=== PATIENT | female | born 1965 | race Caucasian/White ===

== ENCOUNTER 2020-03-13 10:40 | Outpatient (CLI) | payer OTHER ==
--- NOTE | 2020-03-13 12:05 | CT ---
CT ABDOMEN AND PELVIS WITH IV CONTRAST 03/13/2020 CLINICAL INFORMATION: Microscopic hematuria COMPARISON: None. Technique: Multiple contiguous axial CT images are obtained through the abdomen and pelvis with IV contrast. Cor onal reformatted images are provided. FINDINGS: Lower Chest: Mild atelectasis right lung base. Vessels: Abdominal aorta is normal in caliber. Abdomen: Portal vein:Patent Gallbladder: Within normal limits for CT imaging. Liver: within normal limits. Spleen: within normal limits. Pancreas: within normal limits. Adrenals: There is thickening of the left adrenal gland which is asymmetric to the right adrenal glan d. This may relate to adrenal height or aplasia. No discrete nodule is present. Kidneys: Nonobstructing 2 to 3 mm calculi are seen in the superior pole right kidney and in the infer ior pole left kidney. Subcentimeter too small to characterize hypodense lesions are seen in the right kidney. Bowel: Colonic diverticulosis. Loops of small bowel are normal in caliber. There is submucosal fat se en involving the distal ileum may related to prior inflammatory process. A small hiatal hernia is present. Appendix: Not visualized. Peritoneum: No ascites or free air; no fluid collection. Mesentery and Retroperitoneum: No enlarged mesenteric or retroperitoneal lymph nodes. Abdominal Wall: Small fat-containing umbilical hernia. Pelvis: Reproductive Organs: There is a large heterogeneous mass seen involving the body of the uterus to the left of midline which measures 7.6 cm craniocaudal x7.9 cm AP x6.5 cm transverse. This likely represents a large uterine fibroid. There is a small low-density structure seen in each ovary probabl y related to small ovarian cysts. Bladder: Incompletely decompressed and not well evaluated on this exam. There is mass effect on the u rinary bladder due to the large uterine mass presumed to represent a uterine fibroid. Bones: Remote fracture involving the posterior right 11th rib. No suspicious lytic or sclerotic osseo us lesions are identified. IMPRESSION: 1. Heterogeneous mass involving the body of the uterus with greatest dimension of 7.9 cm. This is lik heavenly related to a large uterine fibroid. Pelvic ultrasound may be helpful for confirmation. 2. Nonobstructing bilateral renal calculi. There is no hydronephrosis or hydroureter, and no ureteral calculus is appreciated. 3. Urinary bladder is nondistended limiting evaluation. 4. Small hiatal hernia. 5. Asymmetric left adrenal gland thickening which could be related to adrenal hyperplasia. 6. No acute findings in the abdomen or pelvis.
[2020-03-13 15:17] LABS: Anion Gap 14 mmol/L (10-20); BUN (Urea Nitrogen) 19 mg/dL (9.8-20.1); Calc. Creatinine Clearance 0 mL/min (70-130); Carbon Dioxide 23 mmol/L (22-29); Chloride 105 mmol/L (98-107); Estimated GFR-MDRD 66; Glucose 89 mg/dL (70-105); Potassium 3.9 mmol/L (3.5-5.1); Sodium 138 mmol/L (136-145); Uric Acid 6.7 mg/dL (2.6-6.0)
== END 2020-03-13 10:41 | disposition home or self-care (01) ==
LOC: SCSCT 10:40
PROVIDERS: ATTEND Urology
DX: R31.29 Other microscopic hematuria (principal); N20.0 Calculus of kidney; E65 Localized adiposity; N39.46 Mixed incontinence; N85.8 Other specified noninflammatory disorders of uterus; K44.9 Diaphragmatic hernia without obstruction or gangrene; E27.8 Other specified disorders of adrenal gland
CPT/HCPCS: 74177; 80048; 83970; 84550

== ENCOUNTER 2020-05-12 11:45 | Outpatient (CLI) | payer OTHER ==
[~2020-05-12 11:45] MED LIST: Iopamidol-370 76% 500 ML 1 ML ONE
--- NOTE | 2020-05-12 14:06 | CT ---
CT NECK WITH AND WITHOUT CONTRAST: (Parathyroid protocol) DATE: 05/12/2020 HISTORY: [id number] with hyperparathyroidism and hypercalcemia. TECHNIQUE: Precontrast scan, 25 seconds postcontrast scan, and 65 second postcontrast scan, from several centime ters inferior to the tam to the skull base. Coronal and sagittal reconstructions. FINDINGS: No nodule is identified that is a good candidate for parathyroid adenoma. ACDF hardware at C6-7 in the lower cervical spine. Nonspecific asymmetric effacement of left piriform sinus. No cervical lymphadenopathy. No major pathology identified involving the pharyngeal mucosal, parotid, submandibular, retropharynge al, perivertebral, carotid, comparative sociology professor, or posterior cervical, spaces. IMPRESSION: 1. No good candidate for parathyroid adenoma identified. 2. Consider nuclear medicine sestamibi parathyroid SPECT.
== END 2020-05-12 11:46 | disposition home or self-care (01) ==
LOC: BICCT 11:45
PROVIDERS: ATTEND Specialist
DX: E21.3 Hyperparathyroidism, unspecified (principal)
CPT/HCPCS: 70492

== ENCOUNTER 2020-06-09 08:12 | Outpatient (CLI) | payer OTHER ==
--- NOTE | 2020-06-09 11:58 | NM ---
RADIONUCLIDE PARATHYROID SCAN WITH PLANAR AND SPECT-CT IMAGES: HISTORY: Hyperparathyroidism, unspecified RADIOPHARMACEUTICAL:26.2mCi technetium 99m-sestamibi injected intravenously FINDINGS: There is physiologic uptake in the salivary glands and thyroid gland. No abnormal areas of tracer localization are seen in the neck or chest. IMPRESSION: No scintigraphic evidence of parathyroid adenoma
== END 2020-06-09 08:13 | disposition home or self-care (01) ==
LOC: NM 08:12
PROVIDERS: ATTEND Specialist
DX: E21.3 Hyperparathyroidism, unspecified (principal)
CPT/HCPCS: 78072; A9500

== ENCOUNTER 2020-07-01 11:26 | Outpatient (CLI) | payer OTHER ==
--- NOTE | 2020-07-01 12:02 | RAD ---
XR Lumbar Spine Bending Min 4V History: Lumbar spondylolisthesis Comparison: Abdomen pelvis CT February 2024 reference Findings: 5 nonrib-bearing lumbar type vertebrae. Grade 1 L4 over L5 anterolisthesis due to high-grad e facet arthrosis. No abnormal translation with flexion or extension. There is 2 mm L2/L3 retrolisthesis is due to posterior degenerative disc space height loss, also fixed. Mild L3/L4 and L5/S1 degenerative disc space height loss. Impression: Fixed grade 1 L2/L3 retrolisthesis and L4/L5 anterolisthesis, both degenerative due to di sc space degeneration and facet arthrosis, respectively..
== END 2020-07-01 11:27 | disposition home or self-care (01) ==
LOC: BICRAD 11:26
PROVIDERS: ATTEND Neurological Surgery
DX: M43.16 Spondylolisthesis, lumbar region (principal); M47.816 Spondylosis without myelopathy or radiculopathy, lumbar region; M51.36 Other intervertebral disc degeneration, lumbar region
CPT/HCPCS: 72120

== ENCOUNTER 2020-08-26 09:21 | Outpatient (CLI) | payer OTHER ==
[2020-08-26 10:22] LABS: Hemoglobin 13.8 g/dL (12.0-15.5); Mean Corpuscular HGB CONC 33.1 g/dL (32.0-36.0); Mean Corpuscular Hemoglobin 29.2 pg (27.0-33.0); Mean Corpuscular Volume 88.2 fl (81.6-98.3); Mean Platelet Volume 12.4 fl (7.4-10.4); Platelet Count 190 10x3/uL (150-450); RBC Distribution Width 13.7 % (11.5-14.5); Red Blood Cell (RBC) Count 4.73 10x6/uL (3.90-5.03)
[2020-08-26 10:40] LABS: INR-International Normal Ratio 0.9; PTT 22.5 sec (22.0-33.0); Prothrombin Time 9.8 sec (9.5-12.1)
[2020-08-27 02:03] LABS: SARS-CoV-2 PCR by NAA Not Detected (NotDetected)
== END 2020-08-26 09:22 | disposition home or self-care (01) ==
LOC: LABBT 09:21
PROVIDERS: ATTEND Neurological Surgery
DX: Z01.818 Encounter for other preprocedural examination (principal); M48.061 Spinal stenosis, lumbar region without neurogenic claudication; M43.16 Spondylolisthesis, lumbar region; Z20.822 Contact with and (suspected) exposure to COVID-19
CPT/HCPCS: 85027; 85610; 85730; 87635; 93005; 93010; U0003; U0005

== ENCOUNTER 2020-08-26 10:00 | Inpatient (IN) | payer OTHER ==
[2020-08-29] MEDS ORDERED: Thrombin 5000 UNITS/5 ML VIAL ONE ×2 (06:32→10:56)
[2020-08-29] MEDS ORDERED: Scopolamine 1.5 mg/72 hour Patch ONE (07:03)
[2020-08-29] MEDS ORDERED: Rocuronium Bromide 10 MG/ML (10ML VIAL) ONE (07:08)
[2020-08-29] MEDS ORDERED: ePHEDrine Sulfate 50 MG/10 ML VIAL ONE (07:08)
[2020-08-29] MEDS ORDERED: diphenhydrAMINE 50 MG/ML VIAL ONE (07:08)
[2020-08-29] MEDS ORDERED: PHENYLEPHRINE-NS 100 MCG/ML 10 ML SYRINGE ONE (07:08)
[2020-08-29] MEDS ORDERED: Ondansetron PF 4 MG/2 ML Vial ONE (07:08)
[2020-08-29] MEDS ORDERED: Lidocaine 1% PF 5 ML VIAL ONE (07:08)
[2020-08-29] MEDS ORDERED: PROPOFOL 200 MG/20 ML VIAL ONE (07:08)
[2020-08-29] MEDS ORDERED: Famotidine/PF 20 mg/2ml Vial ONE (07:11)
[2020-08-29] MEDS ORDERED: Fentanyl 100 MCG/2 ML VIAL ONE ×5 (07:11→14:58)
[2020-08-29] MEDS ORDERED: Midazolam HCl 2 mg/2 ml Vial ONE (07:11)
[2020-08-29] MEDS ORDERED: Albuterol Sulfate HFA (OR ONLY) ONE (07:11)
[2020-08-29] MEDS ORDERED: Promethazine HCl 25 MG/ML VIAL IM PRN ×2 (07:27→09:34)
[2020-08-29] MEDS ORDERED: Mag-Al 1200 mg/1200 mg/30 ML UDCUP PO PRN (07:27)
[2020-08-29] MEDS ORDERED: Promethazine 25 MG TAB PO PRN (07:27)
[2020-08-29] MEDS ORDERED: Acetaminophen 325 MG TAB PO PRN (07:27)
[2020-08-29] MEDS ORDERED: Promethazine HCl 12.5 MG SUPP PR PRN (07:27)
[2020-08-29] MEDS ORDERED: diphenhydrAMINE 50 MG/ML VIAL IVP PRN (07:27)
[2020-08-29] MEDS ORDERED: Milk Of Magnesia 30 ML UDCUP PO PRN (07:27)
[2020-08-29] MEDS ORDERED: Acetaminophen 650 MG Suppository PR PRN (07:27)
[2020-08-29] MEDS ORDERED: Acetaminophen/Codeine 30-300mg Tablet PO PRN (07:27)
[2020-08-29] MEDS ORDERED: Bisacodyl 10 MG SUPP PR PRN (07:27)
[2020-08-29] MEDS ORDERED: Morphine 2 MG/ML VIAL SLOW IVP PRN (07:27)
[2020-08-29] MEDS ORDERED: EPINEPHrine 1 MG/ML AMP ONE (07:56)
[2020-08-29] MEDS ORDERED: Bupivacaine PF 0.5% 30 ML VIAL ONE (07:56)
[2020-08-29] MEDS ORDERED: Meperidine HCl/PF 25 MG/ML VIAL SLOW IVP PRN (09:34)
[2020-08-29] MEDS ORDERED: Promethazine HCl 25 MG/ML VIAL SLOW IVP PRN (09:34)
[2020-08-29] MEDS ORDERED: HYDROmorphone 2 MG/ML VIAL SLOW IVP PRN (09:34)
[2020-08-29] MEDS ORDERED: Rocuronium Bromide 50 MG/5 ML VIAL ONE (11:41)
[2020-08-29] MEDS ORDERED: SUGAMMADEX SODIUM 200 MG/2 ML VIAL ONE (11:45)
[2020-08-29] MEDS ORDERED: HYDROmorphone 2 MG/ML VIAL ONE ×2 (12:37→13:45)
[2020-08-29 18:01] VITALS: BMI 39.9
[2020-08-29] MEDS: CEFAZOLIN 2 GM in Premix Bag 1 BAG IVPB SCH (18:25)
[2020-08-29] MEDS: Scopolamine 1.5 mg/72 hour Patch TD SCH (18:25)
[2020-08-29] MEDS: Ondansetron PF 4 MG/2 ML Vial IVP PRN (18:29)
[2020-08-29] MEDS: Sodium Chloride 0.9% 1,000 ML IV SCH (18:30)
[2020-08-29] MEDS: Acetaminophen/Codeine 30-300mg Tablet PO PRN (20:01)
[2020-08-29] MEDS: tiZANidine HCl 4 MG TAB PO PRN (20:01)
[2020-08-29] MEDS ORDERED: Albuterol 200 PUFF (6.7GM INHALER) INH PRN (22:36)
[2020-08-29] MEDS ORDERED: Potassium Citrate 10 MEQ TAB PO SCH (23:45)
[2020-08-29] MEDS ORDERED: Escitalopram Oxalate 20 mg Tablet PO SCH (23:45)
[2020-08-29] MEDS ORDERED: Pregabalin 75 MG CAP PO SCH (23:45)
[2020-08-29] MEDS ORDERED: busPIRone HCl 5 MG TAB PO SCH (23:45)
[2020-08-29] MEDS ORDERED: Famotidine 20 MG TAB PO SCH (23:45)
[2020-08-29] MEDS ORDERED: Amlodipine 5 MG TAB PO SCH (23:45)
[2020-08-30] MEDS ORDERED: Loratadine 10 MG TAB PO SCH (00:15)
[2020-08-30] MEDS: CEFAZOLIN 2 GM in Premix Bag 1 BAG IVPB SCH ×4 (00:16→21:56)
[2020-08-30] MEDS: Benzonatate 100 MG CAP PO PRN ×2 (00:18→14:09)
[2020-08-30] MEDS: Acetaminophen/Codeine 30-300mg Tablet PO PRN (00:19)
[2020-08-30] MEDS: Sodium Chloride 0.9% 1,000 ML IV SCH ×2 (02:45→14:09)
[2020-08-30] MEDS: tiZANidine HCl 4 MG TAB PO PRN (03:58)
[2020-08-30] MEDS ORDERED: Fentanyl 100 MCG/2 ML VIAL SLOW IVP PRN (07:57)
[2020-08-30] MEDS ORDERED: HYDROcodone/Acetaminophen 5/325 mg Tablet PO PRN (07:58)
[2020-08-30] MEDS: Mometasone 200 MCG/Formoterol 5 MCG 120 PUFF INHALER INH SCH ×2 (08:10→19:43)
[2020-08-30] MEDS ORDERED: FLUOCINOLONE ACETONIDE EA EAR SCH (09:00)
[2020-08-30] MEDS: busPIRone HCl 5 MG TAB PO SCH ×2 (09:35→20:33)
[2020-08-30] MEDS: HYDROcodone/Acetaminophen 5/325 mg Tablet PO PRN ×4 (09:36→22:06)
[2020-08-30] MEDS: Pregabalin 75 MG CAP PO SCH ×3 (09:36→20:34)
[2020-08-30] MEDS: Methocarbamol 500 MG TAB PO PRN ×2 (11:35→20:28)
[2020-08-30] MEDS: Leflunomide 10 mg Tablet PO SCH (20:29)
[2020-08-30] MEDS: Potassium Citrate 10 MEQ TAB PO SCH (20:30)
[2020-08-30] MEDS: Famotidine 20 MG TAB PO SCH (20:32)
[2020-08-30] MEDS: Amlodipine 5 MG TAB PO SCH (20:34)
[2020-08-30] MEDS: Escitalopram Oxalate 20 mg Tablet PO SCH (20:35)
[2020-08-30] MEDS: Loratadine 10 MG TAB PO SCH (20:35)
[2020-08-31] MEDS: HYDROcodone/Acetaminophen 5/325 mg Tablet PO PRN ×4 (01:48→20:29)
[2020-08-31] MEDS: Sodium Chloride 0.9% 1,000 ML IV SCH ×3 (04:00→20:30)
[2020-08-31] MEDS: Methocarbamol 500 MG TAB PO PRN ×3 (04:49→23:07)
[2020-08-31] MEDS: CEFAZOLIN 2 GM in Premix Bag 1 BAG IVPB SCH ×3 (04:53→22:33)
[2020-08-31] MEDS: Mometasone 200 MCG/Formoterol 5 MCG 120 PUFF INHALER INH SCH ×2 (07:43→19:27)
[2020-08-31] MEDS: Pregabalin 75 MG CAP PO SCH ×3 (09:02→20:22)
[2020-08-31] MEDS: busPIRone HCl 5 MG TAB PO SCH ×2 (09:12→20:22)
[2020-08-31] MEDS: diphenhydrAMINE 25 MG CAP PO PRN (11:39)
[2020-08-31] MEDS ORDERED: LEVALBUTEROL 45 MCG INH PRN (17:39)
[2020-08-31] MEDS: Escitalopram Oxalate 20 mg Tablet PO SCH (20:22)
[2020-08-31] MEDS: Loratadine 10 MG TAB PO SCH (20:22)
[2020-08-31] MEDS: Amlodipine 5 MG TAB PO SCH (20:23)
[2020-08-31] MEDS: Famotidine 20 MG TAB PO SCH (20:24)
[2020-08-31] MEDS: Leflunomide 10 mg Tablet PO SCH (22:33)
[2020-08-31] MEDS: Potassium Citrate 10 MEQ TAB PO SCH (22:34)
[2020-09-01] MEDS: HYDROcodone/Acetaminophen 5/325 mg Tablet PO PRN ×4 (03:34→18:09)
[2020-09-01] MEDS: CEFAZOLIN 2 GM in Premix Bag 1 BAG IVPB SCH ×3 (05:09→20:55)
[2020-09-01] MEDS: Mometasone 200 MCG/Formoterol 5 MCG 120 PUFF INHALER INH SCH ×2 (07:17→22:49)
[2020-09-01] MEDS: Pregabalin 75 MG CAP PO SCH ×3 (08:06→20:57)
[2020-09-01] MEDS: Scopolamine 1.5 mg/72 hour Patch TD SCH (08:07)
[2020-09-01] MEDS: busPIRone HCl 5 MG TAB PO SCH ×2 (08:07→20:56)
[2020-09-01] MEDS: Methocarbamol 500 MG TAB PO PRN ×2 (10:18→20:57)
[2020-09-01] MEDS: GUAIFENESIN PO PRN (10:22)
[2020-09-01] MEDS: DEXTROMETHORPHAN PO PRN (10:22)
[2020-09-01] MEDS: Ondansetron PF 4 MG/2 ML Vial IVP PRN (11:16)
[2020-09-01] MEDS: Sodium Chloride 0.9% 1,000 ML IV SCH ×2 (15:14→21:06)
[2020-09-01] MEDS: Famotidine 20 MG TAB PO SCH (20:56)
[2020-09-01] MEDS: Escitalopram Oxalate 20 mg Tablet PO SCH (20:56)
[2020-09-01] MEDS: Amlodipine 5 MG TAB PO SCH (20:56)
[2020-09-01] MEDS: Leflunomide 10 mg Tablet PO SCH (20:56)
[2020-09-01] MEDS: Potassium Citrate 10 MEQ TAB PO SCH (20:56)
[2020-09-01] MEDS: Loratadine 10 MG TAB PO SCH (20:58)
[2020-09-02] MEDS: HYDROcodone/Acetaminophen 5/325 mg Tablet PO PRN ×5 (02:48→19:49)
[2020-09-02] MEDS: CEFAZOLIN 2 GM in Premix Bag 1 BAG IVPB SCH ×3 (06:07→21:17)
[2020-09-02] MEDS: Mometasone 200 MCG/Formoterol 5 MCG 120 PUFF INHALER INH SCH ×2 (07:14→18:14)
[2020-09-02] MEDS: busPIRone HCl 5 MG TAB PO SCH ×2 (08:32→19:45)
[2020-09-02] MEDS: Pregabalin 75 MG CAP PO SCH ×3 (08:32→19:44)
[2020-09-02] MEDS: Methocarbamol 500 MG TAB PO PRN ×2 (09:41→18:09)
[2020-09-02] MEDS: DEXTROMETHORPHAN PO PRN (09:48)
[2020-09-02] MEDS: GUAIFENESIN PO PRN (09:48)
[2020-09-02] MEDS: Ondansetron PF 4 MG/2 ML Vial IVP PRN (16:12)
[2020-09-02] MEDS: Sodium Chloride 0.9% 1,000 ML IV SCH (19:00)
[2020-09-02] MEDS: Escitalopram Oxalate 20 mg Tablet PO SCH (19:44)
[2020-09-02] MEDS: Leflunomide 10 mg Tablet PO SCH (19:44)
[2020-09-02] MEDS: Loratadine 10 MG TAB PO SCH (19:44)
[2020-09-02] MEDS: Potassium Citrate 10 MEQ TAB PO SCH (19:44)
[2020-09-02] MEDS: Amlodipine 5 MG TAB PO SCH (19:44)
[2020-09-02] MEDS: Famotidine 20 MG TAB PO SCH (19:45)
[2020-09-02] MEDS: diphenhydrAMINE 25 MG CAP PO PRN (20:16)
[2020-09-03] MEDS: HYDROcodone/Acetaminophen 5/325 mg Tablet PO PRN ×3 (04:05→12:32)
[2020-09-03] MEDS: Methocarbamol 500 MG TAB PO PRN ×2 (04:06→12:28)
[2020-09-03] MEDS: Mometasone 200 MCG/Formoterol 5 MCG 120 PUFF INHALER INH SCH (08:35)
[2020-09-03] MEDS: Pregabalin 75 MG CAP PO SCH (08:45)
[2020-09-03] MEDS: busPIRone HCl 5 MG TAB PO SCH (08:45)
[2020-09-03] MEDS: diphenhydrAMINE 25 MG CAP PO PRN (08:46)
[2020-09-03 11:47] VITALS: BP 116/75; TEMP 98.1
== END 2020-09-03 14:00 | disposition home or self-care (01) | DRG 455 ==
LOC: SURG A 08-29 05:43 → EDSTATUS 08-29 10:00 → SURG B 08-29 16:04
PROVIDERS: ADMIT Neurological Surgery; ATTEND Neurological Surgery
PROC: 0SG00AJ Fusion of Lumbar Vertebral Joint with Interbody Fusion Device, Posterior Approach, Anterior Column, Open Approach (ICD-10-PCS; principal; 2020-08-29)
PROC: 0SG0071 Fusion of Lumbar Vertebral Joint with Autologous Tissue Substitute, Posterior Approach, Posterior Column, Open Approach (ICD-10-PCS; 2020-08-29)
PROC: 0SB20ZZ Excision of Lumbar Vertebral Disc, Open Approach (ICD-10-PCS; 2020-08-29)
PROC: 01NB0ZZ Release Lumbar Nerve, Open Approach (ICD-10-PCS; 2020-08-29)
DX: M43.16 Spondylolisthesis, lumbar region (principal); M48.062 Spinal stenosis, lumbar region with neurogenic claudication; J45.909 Unspecified asthma, uncomplicated; I10 Essential (primary) hypertension; K21.9 Gastro-esophageal reflux disease without esophagitis; M54.16 Radiculopathy, lumbar region; F41.9 Anxiety disorder, unspecified; F32.9 Major depressive disorder, single episode, unspecified; Z20.822 Contact with and (suspected) exposure to COVID-19; Z88.2 Allergy status to sulfonamides; Z88.6 Allergy status to analgesic agent
CPT/HCPCS: 76000; C1713; C1768; J0171; J0690; J1170; J1200; J2250; J2405; J2704; J3010; J3370; J3490; Q0163; S0020; S0028

== ENCOUNTER 2020-10-09 10:57 | Inpatient (IN) | payer OTHER ==
[2020-10-09] MEDS ORDERED: Lidocaine 4% Cream 5 GM TUBE w/ Tegaderm ONE (11:28)
[2020-10-09] MEDS ORDERED: Heparin 1,000 UNITS/ML VIAL ONE (11:47)
[2020-10-09 12:00] LABS: #Eosinphils 0.1 thou/uL (0.0-0.7); #Lymphocytes 0.9 thou/uL (1.20-3.40); #Monocytes 0.8 thou/uL (0.11-0.59); #Neutrophils 3.6 thou/uL (1.40-6.50); %Basophils 0.2 % (0.0-1.0); %Eosinophils 1.5 % (0.0-10.0); %Lymphocytes 17.4 % (21.0-51.0); %Monocytes 14.4 % (0.0-10.0); %Neutrophils 66.5 % (42.0-75.0); Mean Corpuscular HGB CONC 32.1 g/dL (32.0-36.0); Mean Corpuscular Hemoglobin 27.5 pg (27.0-31.0); Mean Corpuscular Volume 85.8 fL (78.0-98.0); Platelet Count 319 thou/uL (130-400); Red Blood Cell (RBC) Count 4.01 mill/uL (4.20-5.40); White Blood Cell (WBC) Count 5.3 thou/uL (4.8-10.8)
[2020-10-09 12:20] LABS: ALT (SGPT) 9 U/L (8-55); AST (SGOT) 13 U/L (5-34); Albumin 3.7 g/dL (3.5-5.0); Alkaline Phosphatase 102 U/L (40-110); Anion Gap 15 mmol/L (10-20); BUN (Urea Nitrogen) 13 mg/dL (9.8-20.1); Bilirubin, Total 0.4 mg/dL (0.2-1.2); Calc. Creatinine Clearance 0 mL/min (70-130); Calcium 9.1 mg/dL (7.8-10.44); Carbon Dioxide 23 mmol/L (22-29); Chloride 104 mmol/L (98-107); Globulin 3.7 g/dL (2.4-3.5); Glucose 96 mg/dL (70-105); Potassium 3.5 mmol/L (3.5-5.1); Protein, Total 7.4 g/dL (6.0-8.3); Sodium 138 mmol/L (136-145)
[2020-10-09] MEDS ORDERED: Ondansetron PF 4 MG/2 ML Vial ONE ×3 (13:06→16:10)
[2020-10-09] MEDS ORDERED: Ondansetron ODT 4 MG TAB ONE (13:15)
[2020-10-09 13:41] LABS: SARS-CoV-2 NAA Rapid Test Not Detected (NotDetected)
[2020-10-09] MEDS ORDERED: Scopolamine 1.5 mg/72 hour Patch ONE (15:10)
[2020-10-09] MEDS ORDERED: Ketorolac Tromethamine 30 MG/ML VIAL ONE (15:11)
[2020-10-09] MEDS ORDERED: Fentanyl 100 MCG/2 ML VIAL ONE ×4 (15:25→18:50)
[2020-10-09] MEDS ORDERED: Sodium Chloride 0.9% 20 ML ONE (15:30)
[2020-10-09] MEDS ORDERED: Promethazine HCl 25 MG/ML VIAL IM PRN (15:46)
[2020-10-09] MEDS ORDERED: Prochlorperazine 10 MG/2 ML VIAL IM PRN (15:46)
[2020-10-09] MEDS ORDERED: Milk Of Magnesia 30 ML UDCUP PO PRN (15:46)
[2020-10-09] MEDS ORDERED: Bisacodyl 10 MG SUPP PR PRN (15:46)
[2020-10-09] MEDS ORDERED: Acetaminophen/Codeine 30-300mg Tablet PO PRN (15:46)
[2020-10-09] MEDS ORDERED: Mag-Al 1200 mg/1200 mg/30 ML UDCUP PO PRN (15:46)
[2020-10-09] MEDS ORDERED: Promethazine HCl 12.5 MG SUPP PR PRN (15:46)
[2020-10-09] MEDS ORDERED: diphenhydrAMINE 50 MG/ML VIAL IVP PRN (15:46)
[2020-10-09] MEDS ORDERED: Rocuronium Bromide 10 MG/ML (10ML VIAL) ONE (16:10)
[2020-10-09] MEDS ORDERED: PROPOFOL 200 MG/20 ML VIAL ONE (16:10)
[2020-10-09] MEDS ORDERED: Lidocaine 1% PF 5 ML VIAL ONE (16:10)
[2020-10-09] MEDS ORDERED: Dexamethasone 20 MG/5 ML VIAL ONE (16:10)
[2020-10-09] MEDS ORDERED: Sodium Chloride 0.9% 10 ML ONE (16:26)
[2020-10-09] MEDS ORDERED: Albuterol Sulfate 2.5 mg/3 ml Neb NEB PRN (16:32)
[2020-10-09] MEDS ORDERED: Cefepime 2 GM in Sodium Chloride 0.9% 100 ML IVPB SCH (16:45)
[2020-10-09] MEDS ORDERED: Thrombin 5000 UNITS/5 ML VIAL ONE (16:59)
[2020-10-09] MEDS ORDERED: HYDROmorphone 0.5 MG/0.5 ML SYRINGE ONE ×2 (17:56→18:04)
[2020-10-09] MEDS ORDERED: Promethazine HCl 25 MG/ML VIAL ONE (18:04)
[2020-10-09] MEDS: Mometasone 200 MCG/Formoterol 5 MCG 120 PUFF INHALER INH SCH ×2 (19:14→21:13)
[2020-10-09] MEDS: Scopolamine 1.5 mg/72 hour Patch TD SCH (20:00)
[2020-10-09 20:03] VITALS: BMI 39.4
[2020-10-09] MEDS: Sodium Chloride 0.9% 1,000 ML IV SCH (21:07)
[2020-10-09] MEDS: Famotidine 20 MG TAB PO SCH (21:09)
[2020-10-09] MEDS: busPIRone HCl 10 MG TAB PO SCH (21:09)
[2020-10-09] MEDS: Amlodipine 5 MG TAB PO SCH (21:10)
[2020-10-09] MEDS: Escitalopram Oxalate 20 mg Tablet PO SCH (21:10)
[2020-10-09] MEDS: tiZANidine HCl 4 MG TAB PO PRN (21:10)
[2020-10-09] MEDS: Loratadine 10 MG TAB PO SCH (21:10)
[2020-10-09] MEDS: Pregabalin 75 MG CAP PO SCH (21:10)
[2020-10-09] MEDS: Potassium Citrate 10 MEQ TAB PO SCH (21:11)
[2020-10-09] MEDS: Meperidine HCl/PF 25 MG/ML VIAL SLOW IVP PRN (21:18)
[2020-10-09] MEDS: Ondansetron PF 4 MG/2 ML Vial IVP PRN (21:51)
[2020-10-09] MEDS: Acetaminophen/Codeine 30-300mg Tablet PO PRN (23:03)
[2020-10-10] MEDS: Meperidine HCl/PF 25 MG/ML VIAL SLOW IVP PRN ×3 (01:22→22:38)
[2020-10-10] MEDS: Cefepime 2 GM in Sodium Chloride 0.9% 100 ML IVPB SCH ×2 (03:08→16:40)
[2020-10-10] MEDS ORDERED: Vancomycin HCl 1 GM in Sodium Chloride 0.9% 250 ML 250 ML IVPB SCH (05:00)
[2020-10-10 05:51] LABS: #Lymphocytes 0.6 thou/uL (1.20-3.40); #Monocytes 0.1 thou/uL (0.11-0.59); #Neutrophils 2.2 thou/uL (1.40-6.50); %Eosinophils 0.1 % (0.0-10.0); %Lymphocytes 20.1 % (21.0-51.0); %Neutrophils 77.8 % (42.0-75.0); Hemoglobin 10.1 g/dL (12.0-16.0); Mean Corpuscular HGB CONC 31.6 g/dL (32.0-36.0); Mean Corpuscular Hemoglobin 27.3 pg (27.0-31.0); Mean Corpuscular Volume 86.4 fL (78.0-98.0); Mean Platelet Volume 8.2 fL (7.4-10.4); Platelet Count 292 thou/uL (130-400); Red Blood Cell (RBC) Count 3.68 mill/uL (4.20-5.40); White Blood Cell (WBC) Count 2.8 thou/uL (4.8-10.8)
[2020-10-10] MEDS: tiZANidine HCl 4 MG TAB PO PRN ×3 (06:00→20:20)
[2020-10-10] MEDS: Vancomycin 1 GM in Premix Bag 1 BAG IVPB SCH ×2 (06:00→16:42)
[2020-10-10 06:15] LABS: Anion Gap 12 mmol/L (10-20); BUN (Urea Nitrogen) 8 mg/dL (9.8-20.1); Calc. Creatinine Clearance 140 mL/min (70-130); Calcium 8.6 mg/dL (7.8-10.44); Carbon Dioxide 24 mmol/L (22-29); Chloride 105 mmol/L (98-107); Glucose 128 mg/dL (70-105); Potassium 3.7 mmol/L (3.5-5.1); Sodium 137 mmol/L (136-145)
[2020-10-10] MEDS: Sodium Chloride 0.9% 1,000 ML IV SCH ×2 (06:23→14:10)
[2020-10-10] MEDS: Mometasone 200 MCG/Formoterol 5 MCG 120 PUFF INHALER INH SCH ×2 (07:24→19:34)
[2020-10-10] MEDS: busPIRone HCl 10 MG TAB PO SCH ×2 (09:36→20:16)
[2020-10-10] MEDS: Pregabalin 75 MG CAP PO SCH ×3 (09:37→20:19)
[2020-10-10] MEDS: Acetaminophen/Codeine 30-300mg Tablet PO PRN ×3 (09:48→20:18)
[2020-10-10] MEDS: diphenhydrAMINE 25 MG CAP PO PRN (11:45)
[2020-10-10] MEDS ORDERED: Lorazepam 2 MG/ML VIAL SLOW IVP SCH (14:45)
[2020-10-10] MEDS: Benzonatate 100 MG CAP PO PRN (16:35)
[2020-10-10] MEDS: Famotidine 20 MG TAB PO SCH (20:15)
[2020-10-10] MEDS: Loratadine 10 MG TAB PO SCH (20:16)
[2020-10-10] MEDS: Escitalopram Oxalate 20 mg Tablet PO SCH (20:16)
[2020-10-10] MEDS: Potassium Citrate 10 MEQ TAB PO SCH (20:17)
[2020-10-10] MEDS: Amlodipine 5 MG TAB PO SCH (20:21)
[2020-10-11] MEDS: Cefepime 2 GM in Sodium Chloride 0.9% 100 ML IVPB SCH ×2 (03:02→15:30)
[2020-10-11] MEDS: Acetaminophen/Codeine 30-300mg Tablet PO PRN ×4 (03:09→21:20)
[2020-10-11] MEDS: tiZANidine HCl 4 MG TAB PO PRN ×3 (03:10→21:21)
[2020-10-11] MEDS: Vancomycin 1 GM in Premix Bag 1 BAG IVPB SCH ×2 (05:27→16:36)
[2020-10-11] MEDS: Meperidine HCl/PF 25 MG/ML VIAL SLOW IVP PRN ×3 (05:27→22:21)
[2020-10-11] MEDS: Mometasone 200 MCG/Formoterol 5 MCG 120 PUFF INHALER INH SCH ×2 (06:37→18:39)
[2020-10-11] MEDS: Pregabalin 75 MG CAP PO SCH ×3 (09:11→21:05)
[2020-10-11] MEDS: busPIRone HCl 10 MG TAB PO SCH ×2 (09:12→21:04)
[2020-10-11] MEDS: Benzonatate 100 MG CAP PO PRN ×2 (09:15→21:20)
[2020-10-11] MEDS: Sodium Chloride 0.9% 1,000 ML IV SCH (09:17)
[2020-10-11] MEDS: Potassium Chloride 20 MEQ TAB PO SCH (21:02)
[2020-10-11] MEDS: Escitalopram Oxalate 20 mg Tablet PO SCH (21:03)
[2020-10-11] MEDS: Amlodipine 5 MG TAB PO SCH (21:04)
[2020-10-11] MEDS: guaiFENesin/DM ER PO SCH (21:06)
[2020-10-11] MEDS: Loratadine 10 MG TAB PO SCH (21:07)
[2020-10-12] MEDS: Acetaminophen/Codeine 30-300mg Tablet PO PRN (03:09)
[2020-10-12] MEDS: Cefepime 2 GM in Sodium Chloride 0.9% 100 ML IVPB SCH ×2 (03:11→16:49)
[2020-10-12] MEDS: tiZANidine HCl 4 MG TAB PO PRN (04:53)
[2020-10-12] MEDS: Vancomycin 1 GM in Premix Bag 1 BAG IVPB SCH ×2 (04:53→16:49)
[2020-10-12] MEDS: Mometasone 200 MCG/Formoterol 5 MCG 120 PUFF INHALER INH SCH ×2 (06:41→18:30)
[2020-10-12] MEDS: Fluticasone Propionate Nasal Spray 16 gm Bottle NASAL SCH (08:21)
[2020-10-12] MEDS: Pregabalin 75 MG CAP PO SCH ×3 (08:22→20:44)
[2020-10-12] MEDS: guaiFENesin/DM ER PO SCH ×2 (08:22→20:45)
[2020-10-12] MEDS: busPIRone HCl 10 MG TAB PO SCH ×2 (08:22→20:42)
[2020-10-12] MEDS: HYDROcodone/Acetaminophen 5/325 mg Tablet PO PRN ×2 (09:08→15:27)
[2020-10-12] MEDS: Cyclobenzaprine 10 MG TAB PO PRN ×2 (11:11→20:43)
[2020-10-12] MEDS: Scopolamine 1.5 mg/72 hour Patch TD SCH (16:49)
[2020-10-12] MEDS: Potassium Chloride 20 MEQ TAB PO SCH (20:43)
[2020-10-12] MEDS: Loratadine 10 MG TAB PO SCH (20:44)
[2020-10-12] MEDS: Amlodipine 5 MG TAB PO SCH (20:45)
[2020-10-12] MEDS: Escitalopram Oxalate 20 mg Tablet PO SCH (20:45)
[2020-10-12] MEDS: Meperidine HCl/PF 25 MG/ML VIAL SLOW IVP PRN (23:03)
[2020-10-13] MEDS: Cefepime 2 GM in Sodium Chloride 0.9% 100 ML IVPB SCH ×2 (04:29→15:16)
[2020-10-13 04:48] LABS: #Eosinphils 0.1 thou/uL (0.0-0.7); #Lymphocytes 1.5 thou/uL (1.20-3.40); #Monocytes 0.7 thou/uL (0.11-0.59); #Neutrophils 2.5 thou/uL (1.40-6.50); %Basophils 0.1 % (0.0-1.0); %Lymphocytes 30.7 % (21.0-51.0); %Monocytes 14.4 % (0.0-10.0); %Neutrophils 51.8 % (42.0-75.0); Hemoglobin 10.4 g/dL (12.0-16.0); Mean Corpuscular Hemoglobin 27.8 pg (27.0-31.0); Mean Platelet Volume 8.3 fL (7.4-10.4); Platelet Count 259 thou/uL (130-400); RBC Distribution Width 14.4 % (11.5-14.5); Red Blood Cell (RBC) Count 3.74 mill/uL (4.20-5.40); White Blood Cell (WBC) Count 4.8 thou/uL (4.8-10.8)
[2020-10-13 05:02] LABS: ALT (SGPT) 14 U/L (8-55); AST (SGOT) 19 U/L (5-34); Albumin 3.2 g/dL (3.5-5.0); Alkaline Phosphatase 80 U/L (40-110); Anion Gap 10 mmol/L (10-20); BUN (Urea Nitrogen) 10 mg/dL (9.8-20.1); Bilirubin, Total 0.2 mg/dL (0.2-1.2); CRP (Inflammatory) Less than 0.50 mg/dL (= or < 0.5); Calc. Creatinine Clearance 162 mL/min (70-130); Calcium 8.2 mg/dL (7.8-10.44); Carbon Dioxide 30 mmol/L (22-29); Chloride 102 mmol/L (98-107); Globulin 3.2 g/dL (2.4-3.5); Glucose 86 mg/dL (70-105); Potassium 3.6 mmol/L (3.5-5.1); Protein, Total 6.4 g/dL (6.0-8.3); Sodium 138 mmol/L (136-145)
[2020-10-13] MEDS: Vancomycin 1 GM in Premix Bag 1 BAG IVPB SCH ×2 (05:29→17:22)
[2020-10-13] MEDS: Mometasone 200 MCG/Formoterol 5 MCG 120 PUFF INHALER INH SCH ×2 (07:28→18:33)
[2020-10-13] MEDS: Ondansetron PF 4 MG/2 ML Vial IVP PRN (09:04)
[2020-10-13] MEDS: Meperidine HCl/PF 25 MG/ML VIAL SLOW IVP PRN ×2 (09:07→22:26)
[2020-10-13] MEDS: Fluticasone Propionate Nasal Spray 16 gm Bottle NASAL SCH (09:57)
[2020-10-13] MEDS: busPIRone HCl 10 MG TAB PO SCH ×2 (09:58→19:41)
[2020-10-13] MEDS: guaiFENesin/DM ER PO SCH ×2 (09:58→19:43)
[2020-10-13] MEDS: Benzonatate 100 MG CAP PO PRN ×2 (09:59→19:49)
[2020-10-13] MEDS: Cyclobenzaprine 10 MG TAB PO PRN ×2 (09:59→18:14)
[2020-10-13] MEDS: Pregabalin 75 MG CAP PO SCH ×3 (10:00→19:44)
[2020-10-13] MEDS: HYDROcodone/Acetaminophen 5/325 mg Tablet PO PRN ×2 (12:02→17:22)
[2020-10-13] MEDS ORDERED: Acetaminophen 325 MG TAB PO PRN (15:25)
[2020-10-13] MEDS: diphenhydrAMINE 25 MG CAP PO PRN (18:42)
[2020-10-13] MEDS: Loratadine 10 MG TAB PO SCH (19:42)
[2020-10-13] MEDS: Amlodipine 5 MG TAB PO SCH (19:43)
[2020-10-13] MEDS: Escitalopram Oxalate 20 mg Tablet PO SCH (19:43)
[2020-10-13] MEDS: Potassium Chloride 20 MEQ TAB PO SCH (19:44)
[2020-10-14] MEDS: Vancomycin 1 GM in Premix Bag 1 BAG IVPB SCH ×2 (05:25→17:46)
[2020-10-14] MEDS: Cefepime 2 GM in Sodium Chloride 0.9% 100 ML IVPB SCH ×2 (05:25→16:02)
[2020-10-14] MEDS: HYDROcodone/Acetaminophen 5/325 mg Tablet PO PRN ×4 (06:19→20:19)
[2020-10-14] MEDS: Mometasone 200 MCG/Formoterol 5 MCG 120 PUFF INHALER INH SCH ×2 (07:33→18:29)
[2020-10-14] MEDS: Cyclobenzaprine 10 MG TAB PO PRN ×2 (09:38→17:51)
[2020-10-14] MEDS: Fluticasone Propionate Nasal Spray 16 gm Bottle NASAL SCH (09:38)
[2020-10-14] MEDS: guaiFENesin/DM ER PO SCH ×2 (09:39→20:20)
[2020-10-14] MEDS: busPIRone HCl 10 MG TAB PO SCH ×2 (09:40→20:20)
[2020-10-14] MEDS: Pregabalin 75 MG CAP PO SCH ×3 (09:41→20:23)
[2020-10-14] MEDS: Ondansetron PF 4 MG/2 ML Vial IVP PRN ×2 (09:46→19:20)
[2020-10-14] MEDS: Meperidine HCl/PF 25 MG/ML VIAL SLOW IVP PRN ×2 (10:00→23:05)
[2020-10-14] MEDS: diphenhydrAMINE 25 MG CAP PO PRN (16:58)
[2020-10-14] MEDS: Benzonatate 100 MG CAP PO PRN (20:19)
[2020-10-14] MEDS: Escitalopram Oxalate 20 mg Tablet PO SCH (20:21)
[2020-10-14] MEDS: Loratadine 10 MG TAB PO SCH (20:21)
[2020-10-14] MEDS: Amlodipine 5 MG TAB PO SCH (20:22)
[2020-10-14] MEDS: Potassium Chloride 20 MEQ TAB PO SCH (20:22)
[2020-10-15] MEDS: Cefepime 2 GM in Sodium Chloride 0.9% 100 ML IVPB SCH ×2 (05:26→15:53)
[2020-10-15] MEDS: Vancomycin 1 GM in Premix Bag 1 BAG IVPB SCH ×2 (05:27→16:01)
[2020-10-15] MEDS: HYDROcodone/Acetaminophen 5/325 mg Tablet PO PRN ×3 (05:30→18:04)
[2020-10-15] MEDS: Mometasone 200 MCG/Formoterol 5 MCG 120 PUFF INHALER INH SCH ×2 (07:45→18:51)
[2020-10-15] MEDS: Fluticasone Propionate Nasal Spray 16 gm Bottle NASAL SCH (09:26)
[2020-10-15] MEDS: Pregabalin 75 MG CAP PO SCH ×3 (09:28→20:43)
[2020-10-15] MEDS: guaiFENesin/DM ER PO SCH ×2 (09:28→20:42)
[2020-10-15] MEDS: busPIRone HCl 10 MG TAB PO SCH ×2 (09:29→20:41)
[2020-10-15] MEDS: Cyclobenzaprine 10 MG TAB PO PRN ×2 (09:41→20:45)
[2020-10-15 10:16] LABS: Fungus Stain Final report (.)
[2020-10-15 10:16] LABS: Fungus Stain Final report (.)
[2020-10-15 10:16] LABS: Fungus Stain Final report (.)
[2020-10-15] MEDS: Meperidine HCl/PF 25 MG/ML VIAL SLOW IVP PRN ×2 (13:15→22:33)
[2020-10-15] MEDS: Scopolamine 1.5 mg/72 hour Patch TD SCH (16:00)
[2020-10-15] MEDS: Potassium Chloride 20 MEQ TAB PO SCH (20:39)
[2020-10-15] MEDS: diphenhydrAMINE 25 MG CAP PO PRN (20:40)
[2020-10-15] MEDS: Amlodipine 5 MG TAB PO SCH (20:41)
[2020-10-15] MEDS: Escitalopram Oxalate 20 mg Tablet PO SCH (20:42)
[2020-10-15] MEDS: Loratadine 10 MG TAB PO SCH (20:42)
[2020-10-16] MEDS: Cefepime 2 GM in Sodium Chloride 0.9% 100 ML IVPB SCH ×2 (04:15→15:28)
[2020-10-16] MEDS: HYDROcodone/Acetaminophen 5/325 mg Tablet PO PRN ×5 (04:15→22:31)
[2020-10-16] MEDS: Ondansetron PF 4 MG/2 ML Vial IVP PRN (04:17)
[2020-10-16] MEDS: Vancomycin 1 GM in Premix Bag 1 BAG IVPB SCH ×2 (05:15→17:10)
[2020-10-16] MEDS: Mometasone 200 MCG/Formoterol 5 MCG 120 PUFF INHALER INH SCH ×2 (06:50→19:30)
[2020-10-16] MEDS: busPIRone HCl 10 MG TAB PO SCH ×2 (08:54→22:30)
[2020-10-16] MEDS: guaiFENesin/DM ER PO SCH ×2 (08:55→22:54)
[2020-10-16] MEDS: Pregabalin 75 MG CAP PO SCH ×3 (08:55→22:33)
[2020-10-16] MEDS: Fluticasone Propionate Nasal Spray 16 gm Bottle NASAL SCH (08:56)
[2020-10-16] MEDS: Cyclobenzaprine 10 MG TAB PO PRN ×2 (09:01→17:10)
[2020-10-16] MEDS: Meperidine HCl/PF 25 MG/ML VIAL SLOW IVP PRN (09:17)
[2020-10-16 16:49] LABS: Vancomycin, Trough 16.5 ug/mL
[2020-10-16] MEDS: diphenhydrAMINE 25 MG CAP PO PRN (17:16)
[2020-10-16] MEDS: Amlodipine 5 MG TAB PO SCH (22:29)
[2020-10-16] MEDS: Potassium Chloride 20 MEQ TAB PO SCH (22:29)
[2020-10-16] MEDS: Escitalopram Oxalate 20 mg Tablet PO SCH (22:30)
[2020-10-16] MEDS: Loratadine 10 MG TAB PO SCH (22:34)
[2020-10-17] MEDS: HYDROcodone/Acetaminophen 5/325 mg Tablet PO PRN ×5 (01:50→23:18)
[2020-10-17] MEDS: diphenhydrAMINE 25 MG CAP PO PRN ×3 (01:50→22:24)
[2020-10-17] MEDS: Cefepime 2 GM in Sodium Chloride 0.9% 100 ML IVPB SCH ×2 (04:11→15:27)
[2020-10-17] MEDS: Vancomycin 1 GM in Premix Bag 1 BAG IVPB SCH ×2 (05:18→17:03)
[2020-10-17] MEDS: Cyclobenzaprine 10 MG TAB PO PRN (06:32)
[2020-10-17] MEDS: Mometasone 200 MCG/Formoterol 5 MCG 120 PUFF INHALER INH SCH ×2 (07:06→19:39)
[2020-10-17] MEDS: Fluticasone Propionate Nasal Spray 16 gm Bottle NASAL SCH (08:56)
[2020-10-17] MEDS: busPIRone HCl 10 MG TAB PO SCH ×2 (08:58→21:12)
[2020-10-17] MEDS: Pregabalin 75 MG CAP PO SCH ×3 (08:58→21:12)
[2020-10-17] MEDS: guaiFENesin/DM ER PO SCH ×2 (09:03→21:13)
[2020-10-17] MEDS: Ondansetron PF 4 MG/2 ML Vial IVP PRN ×2 (09:33→20:18)
[2020-10-17] MEDS: Methocarbamol 500 MG TAB PO SCH ×2 (15:24→21:14)
[2020-10-17] MEDS: Amlodipine 5 MG TAB PO SCH (21:11)
[2020-10-17] MEDS: Escitalopram Oxalate 20 mg Tablet PO SCH (21:12)
[2020-10-17] MEDS: Loratadine 10 MG TAB PO SCH (21:13)
[2020-10-17] MEDS: Leflunomide 10 mg Tablet PO SCH (21:13)
[2020-10-17] MEDS: Potassium Chloride 20 MEQ TAB PO SCH (21:14)
[2020-10-18] MEDS: Cefepime 2 GM in Sodium Chloride 0.9% 100 ML IVPB SCH ×2 (03:07→16:00)
[2020-10-18] MEDS: Vancomycin 1 GM in Premix Bag 1 BAG IVPB SCH ×2 (06:10→16:05)
[2020-10-18] MEDS: Mometasone 200 MCG/Formoterol 5 MCG 120 PUFF INHALER INH SCH ×2 (08:17→18:49)
[2020-10-18] MEDS: busPIRone HCl 10 MG TAB PO SCH ×2 (09:07→21:42)
[2020-10-18] MEDS: Methocarbamol 500 MG TAB PO SCH ×3 (09:07→21:43)
[2020-10-18] MEDS: guaiFENesin/DM ER PO SCH ×2 (09:08→21:42)
[2020-10-18] MEDS: Pregabalin 75 MG CAP PO SCH ×3 (09:08→21:42)
[2020-10-18] MEDS: HYDROcodone/Acetaminophen 5/325 mg Tablet PO PRN ×4 (09:08→21:41)
[2020-10-18] MEDS: Fluticasone Propionate Nasal Spray 16 gm Bottle NASAL SCH (09:10)
[2020-10-18] MEDS: Promethazine 25 MG TAB PO PRN (13:37)
[2020-10-18] MEDS: Scopolamine 1.5 mg/72 hour Patch TD SCH (16:05)
[2020-10-18] MEDS: Ondansetron PF 4 MG/2 ML Vial IVP PRN (20:32)
[2020-10-18] MEDS: Amlodipine 5 MG TAB PO SCH (21:41)
[2020-10-18] MEDS: Loratadine 10 MG TAB PO SCH (21:41)
[2020-10-18] MEDS: Escitalopram Oxalate 20 mg Tablet PO SCH (21:41)
[2020-10-18] MEDS: diphenhydrAMINE 25 MG CAP PO PRN (21:41)
[2020-10-18] MEDS: Potassium Chloride 20 MEQ TAB PO SCH (21:42)
[2020-10-18] MEDS: Leflunomide 10 mg Tablet PO SCH (21:43)
[2020-10-19] MEDS: Cefepime 2 GM in Sodium Chloride 0.9% 100 ML IVPB SCH ×2 (04:46→15:55)
[2020-10-19] MEDS: Vancomycin 1 GM in Premix Bag 1 BAG IVPB SCH ×2 (05:36→17:12)
[2020-10-19] MEDS: Mometasone 200 MCG/Formoterol 5 MCG 120 PUFF INHALER INH SCH ×2 (07:35→18:59)
[2020-10-19] MEDS: busPIRone HCl 10 MG TAB PO SCH ×2 (09:24→19:52)
[2020-10-19] MEDS: guaiFENesin/DM ER PO SCH ×2 (09:25→19:51)
[2020-10-19] MEDS: HYDROcodone/Acetaminophen 5/325 mg Tablet PO PRN ×3 (09:25→21:09)
[2020-10-19] MEDS: Pregabalin 75 MG CAP PO SCH ×3 (09:25→19:52)
[2020-10-19] MEDS: Fluticasone Propionate Nasal Spray 16 gm Bottle NASAL SCH (09:26)
[2020-10-19] MEDS: Methocarbamol 500 MG TAB PO SCH ×3 (09:28→19:46)
[2020-10-19] MEDS: Promethazine 25 MG TAB PO PRN (11:34)
[2020-10-19] MEDS: Ondansetron PF 4 MG/2 ML Vial IVP PRN (19:44)
[2020-10-19] MEDS: Leflunomide 10 mg Tablet PO SCH (19:48)
[2020-10-19] MEDS: Escitalopram Oxalate 20 mg Tablet PO SCH (19:49)
[2020-10-19] MEDS: Potassium Chloride 20 MEQ TAB PO SCH (19:50)
[2020-10-19] MEDS: Loratadine 10 MG TAB PO SCH (19:50)
[2020-10-19] MEDS: Amlodipine 5 MG TAB PO SCH (19:52)
[2020-10-20] MEDS: HYDROcodone/Acetaminophen 5/325 mg Tablet PO PRN ×4 (05:05→21:18)
[2020-10-20] MEDS: Cyclobenzaprine 10 MG TAB PO PRN (05:05)
[2020-10-20] MEDS: Vancomycin 1 GM in Premix Bag 1 BAG IVPB SCH ×2 (05:07→16:23)
[2020-10-20] MEDS: Mometasone 200 MCG/Formoterol 5 MCG 120 PUFF INHALER INH SCH ×2 (06:56→18:24)
[2020-10-20] MEDS: guaiFENesin/DM ER PO SCH ×2 (08:32→21:19)
[2020-10-20] MEDS: Ondansetron PF 4 MG/2 ML Vial IVP PRN (08:32)
[2020-10-20] MEDS: Pregabalin 75 MG CAP PO SCH ×3 (08:33→20:35)
[2020-10-20] MEDS: busPIRone HCl 10 MG TAB PO SCH ×2 (08:33→20:33)
[2020-10-20] MEDS: Methocarbamol 500 MG TAB PO SCH ×3 (08:34→20:34)
[2020-10-20] MEDS: Fluticasone Propionate Nasal Spray 16 gm Bottle NASAL SCH (08:34)
[2020-10-20] MEDS: Loratadine 10 MG TAB PO SCH (20:32)
[2020-10-20] MEDS: Escitalopram Oxalate 20 mg Tablet PO SCH (20:33)
[2020-10-20] MEDS: Potassium Chloride 20 MEQ TAB PO SCH (20:33)
[2020-10-20] MEDS: Amlodipine 5 MG TAB PO SCH (20:35)
[2020-10-20] MEDS: Leflunomide 10 mg Tablet PO SCH (20:36)
[2020-10-20] MEDS ORDERED: cefTRIAXone\\ROCEPHIN 2 GM in Sodium Chloride 0.9% 100 ML IVPB SCH (21:00)
[2020-10-20] MEDS: diphenhydrAMINE 25 MG CAP PO PRN (21:21)
[2020-10-21] MEDS: HYDROcodone/Acetaminophen 5/325 mg Tablet PO PRN ×3 (02:40→13:57)
[2020-10-21] MEDS: Vancomycin 1 GM in Premix Bag 1 BAG IVPB SCH ×2 (05:21→16:09)
[2020-10-21] MEDS: Methocarbamol 500 MG TAB PO SCH ×2 (08:12→14:00)
[2020-10-21] MEDS: busPIRone HCl 10 MG TAB PO SCH (08:12)
[2020-10-21] MEDS: guaiFENesin/DM ER PO SCH (08:14)
[2020-10-21] MEDS: Fluticasone Propionate Nasal Spray 16 gm Bottle NASAL SCH (08:14)
[2020-10-21] MEDS: Pregabalin 75 MG CAP PO SCH ×2 (08:14→13:59)
[2020-10-21] MEDS: Mometasone 200 MCG/Formoterol 5 MCG 120 PUFF INHALER INH SCH ×2 (09:06→11:36)
[2020-10-21 11:34] VITALS: TEMP 98.1
[2020-10-21 16:06] VITALS: BP 126/83
[2020-10-21] MEDS: Scopolamine 1.5 mg/72 hour Patch TD SCH (16:07)
[2020-10-21] MEDS: Cyclobenzaprine 10 MG TAB PO PRN (16:07)
== END 2020-10-21 16:49 | DRG 856 ==
LOC: ERS 10:57 → SURG B 15:46
PROVIDERS: ADMIT Internal Medicine Infectious Disease; ATTEND Hospitalist
PROC: 0QP00JZ Removal of Synthetic Substitute from Lumbar Vertebra, Open Approach (ICD-10-PCS; principal; 2020-10-09)
PROC: 0JB70ZZ Excision of Back Subcutaneous Tissue and Fascia, Open Approach (ICD-10-PCS; 2020-10-09)
PROC: 02HV33Z Insertion of Infusion Device into Superior Vena Cava, Percutaneous Approach (ICD-10-PCS; 2020-10-10)
PROC: B548ZZA Ultrasonography of Superior Vena Cava, Guidance (ICD-10-PCS; 2020-10-10)
DX: T81.49XA Infection following a procedure, other surgical site, initial encounter (principal); G06.1 Intraspinal abscess and granuloma; T81.31XA Disruption of external operation (surgical) wound, not elsewhere classified, initial encounter; K50.90 Crohn's disease, unspecified, without complications; Z20.822 Contact with and (suspected) exposure to COVID-19; N20.0 Calculus of kidney; I10 Essential (primary) hypertension; K21.9 Gastro-esophageal reflux disease without esophagitis; D25.9 Leiomyoma of uterus, unspecified; Y83.8 Other surgical procedures as the cause of abnormal reaction of the patient, or of later complication, without mention of misadventure at the time of the procedure; G89.4 Chronic pain syndrome; J45.20 Mild intermittent asthma, uncomplicated; F41.8 Other specified anxiety disorders; M79.89 Other specified soft tissue disorders; N39.46 Mixed incontinence; Z98.890 Other specified postprocedural states; Z98.1 Arthrodesis status; Z79.899 Other long term (current) drug therapy; Z88.2 Allergy status to sulfonamides; Z88.5 Allergy status to narcotic agent; G47.00 Insomnia, unspecified; E66.9 Obesity, unspecified; D63.8 Anemia in other chronic diseases classified elsewhere; Z68.39 Body mass index [BMI] 39.0-39.9, adult
CPT/HCPCS: 36415; 36569; 72158; 80048; 80053; 80202; 83605; 85025; 86140; 87040; 87070; 87102; 87205; 87206; C1751; J0692; J0696; J1100; J1170; J1644; J1885; J2175; J2405; J2550; J2704; J3010; J3370; J3490; Q0162; Q0163; Q0169; U0002

== ENCOUNTER 2020-11-27 15:27 | Emergency (ER) | payer OTHER ==
[2020-11-27 17:13] LABS: #Eosinphils 0.2 thou/uL (0.0-0.7); #Lymphocytes 1.3 thou/uL (1.20-3.40); #Monocytes 1.1 thou/uL (0.11-0.59); #Neutrophils 5.6 thou/uL (1.40-6.50); %Basophils 0.1 % (0.0-1.0); %Eosinophils 2.9 % (0.0-10.0); %Lymphocytes 15.4 % (21.0-51.0); %Monocytes 13.9 % (0.0-10.0); %Neutrophils 67.7 % (42.0-75.0); Hemoglobin 10.8 g/dL (12.0-16.0); Mean Corpuscular HGB CONC 32.1 g/dL (32.0-36.0); Mean Corpuscular Hemoglobin 25.5 pg (27.0-31.0); Mean Corpuscular Volume 79.4 fL (78.0-98.0); Platelet Count 259 thou/uL (130-400); RBC Distribution Width 14.9 % (11.5-14.5); Red Blood Cell (RBC) Count 4.25 mill/uL (4.20-5.40); White Blood Cell (WBC) Count 8.2 thou/uL (4.8-10.8)
[2020-11-27 17:20] LABS: Bilirubin Negative (Negative); Blood, Urine Negative (Negative); Clarity Clear (Clear); Glucose, Urine (Dipstick) Normal (Negative); Ketone, Urine Negative (Negative); Leukocyte Negative Leu/uL (Negative); Nitrite Negative (Negative); Protein, Urine (Dipstick) Negative (Neg-Trace); Specific Gravity, Urine 1.012 (1.002-1.036); Urobilinogen Normal mg/dL (Less than 2); pH, Urine 7.5 (5.0-9.0)
[2020-11-27 17:43] LABS: ALT (SGPT) 8 U/L (8-55); AST (SGOT) 24 U/L (5-34); Albumin 3.7 g/dL (3.5-5.0); Alkaline Phosphatase 99 U/L (40-110); Anion Gap 15 mmol/L (10-20); BUN (Urea Nitrogen) 10 mg/dL (9.8-20.1); Bilirubin, Total 0.3 mg/dL (0.2-1.2); Calc. Creatinine Clearance 0 mL/min (70-130); Calcium 9.5 mg/dL (7.8-10.44); Carbon Dioxide 26 mmol/L (22-29); Chloride 102 mmol/L (98-107); Globulin 4.1 g/dL (2.4-3.5); Glucose 92 mg/dL (70-105); Potassium 4.9 mmol/L (3.5-5.1); Protein, Total 7.8 g/dL (6.0-8.3); Sodium 138 mmol/L (136-145)
[2020-11-27] MEDS ORDERED: HYDROcodone/Acetaminophen 5/325 mg Tablet ONE (18:47)
== END 2020-11-27 20:10 ==
LOC: ERS 15:27
DX: R50.9 Fever, unspecified (principal); J45.909 Unspecified asthma, uncomplicated; K21.9 Gastro-esophageal reflux disease without esophagitis
CPT/HCPCS: 36415; 80053; 81003; 83605; 85025; 87040; 87086; 99283

== ENCOUNTER 2021-03-02 14:18 | Outpatient (CLI) | payer OTHER | END 2021-03-02 14:19 | disposition home or self-care (01) | LOC: TBSIIMAG 14:18 | PROVIDERS: ATTEND Neurological Surgery | DX: M54.16 Radiculopathy, lumbar region (principal); Z98.890 Other specified postprocedural states | CPT/HCPCS: 72100 ==

== ENCOUNTER 2021-03-20 16:57 | Observation (INO) | payer OTHER ==
[2021-03-20] MEDS ORDERED: Ondansetron PF 4 MG/2 ML Vial ONE ×2 (17:29→20:25)
[2021-03-20] MEDS ORDERED: Lidocaine 1% PF 5 ML VIAL ONE (17:42)
[2021-03-20] MEDS ORDERED: Lidocaine Viscous Sol 2% 15 ml UD Cup ONE (17:42)
[2021-03-20] MEDS ORDERED: HYDROmorphone 0.5 MG/0.5 ML SYRINGE ONE (18:05)
[2021-03-20 18:16] LABS: #Eosinphils 0.1 thou/uL (0.0-0.7); #Lymphocytes 1.6 thou/uL (1.20-3.40); #Monocytes 0.8 thou/uL (0.11-0.59); #Neutrophils 3.3 thou/uL (1.40-6.50); %Basophils 0.3 % (0.0-1.0); %Eosinophils 1.3 % (0.0-10.0); %Lymphocytes 27.3 % (21.0-51.0); %Monocytes 14.2 % (0.0-10.0); Hemoglobin 11.9 g/dL (12.0-16.0); Mean Corpuscular HGB CONC 31.5 g/dL (32.0-36.0); Mean Corpuscular Hemoglobin 23.4 pg (27.0-31.0); Mean Corpuscular Volume 74.1 fL (78.0-98.0); Mean Platelet Volume 10.2 fL (7.4-10.4); Platelet Count 305 thou/uL (130-400); RBC Distribution Width 17.8 % (11.5-14.5); Red Blood Cell (RBC) Count 5.08 mill/uL (4.20-5.40); White Blood Cell (WBC) Count 5.8 thou/uL (4.8-10.8)
[2021-03-20 18:41] LABS: ALT (SGPT) 13 U/L (8-55); AST (SGOT) 19 U/L (5-34); Albumin 4.2 g/dL (3.5-5.0); Alkaline Phosphatase 114 U/L (40-110); Anion Gap 16 mmol/L (10-20); BUN (Urea Nitrogen) 15 mg/dL (9.8-20.1); Bilirubin, Total 0.2 mg/dL (0.2-1.2); Calc. Creatinine Clearance 0 mL/min (70-130); Carbon Dioxide 24 mmol/L (22-29); Chloride 102 mmol/L (98-107); Glucose 98 mg/dL (70-105); Potassium 4.3 mmol/L (3.5-5.1); Protein, Total 8.2 g/dL (6.0-8.3); Sodium 138 mmol/L (136-145)
[2021-03-20] MEDS ORDERED: Loperamide HCl 2 MG CAP PO PRN (19:04)
[2021-03-20] MEDS ORDERED: Bisacodyl 5 MG TAB PO PRN (19:04)
[2021-03-20] MEDS ORDERED: Ondansetron ODT 4 MG TAB PO PRN (19:04)
[2021-03-20] MEDS ORDERED: Senokot S 8.6-50 MG TAB PO PRN (19:04)
[2021-03-20] MEDS ORDERED: Acetaminophen 325 MG TAB PO PRN (19:04)
[2021-03-20] MEDS: Acetaminophen/Codeine 30-300mg Tablet PO PRN (22:23)
[2021-03-20] MEDS: tiZANidine HCl 4 MG TAB PO PRN (22:23)
[2021-03-20] MEDS: hydrOXYzine 25 MG TAB PO PRN (22:24)
[2021-03-20 22:30] VITALS: BMI 40.4
[2021-03-21] MEDS: HYDROcodone/Acetaminophen 7.5/325 mg Tablet PO PRN ×6 (00:35→22:40)
[2021-03-21] MEDS: hydrOXYzine 25 MG TAB PO PRN ×3 (06:45→21:30)
[2021-03-21] MEDS: tiZANidine HCl 4 MG TAB PO PRN ×3 (09:25→22:39)
[2021-03-21] MEDS ORDERED: Benzonatate 100 MG CAP PO PRN (09:52)
[2021-03-21] MEDS ORDERED: Albuterol Sulfate 2.5 mg/0.5 ml Neb NEB PRN (11:03)
[2021-03-21] MEDS: Methocarbamol 500 MG TAB PO SCH ×2 (14:38→20:30)
[2021-03-21] MEDS ORDERED: Loratadine 10 MG TAB PO SCH ×2 (14:45→21:00)
[2021-03-21] MEDS ORDERED: diphenhydrAMINE 25 MG CAP PO SCH (16:15)
[2021-03-21] MEDS: Mometasone 200 MCG/Formoterol 5 MCG 120 PUFF INHALER INH SCH (18:55)
[2021-03-21 18:57] LABS: SARS-CoV-2 PCR by NAA Not Detected (NotDetected)
[2021-03-21] MEDS: Acetaminophen/Codeine 30-300mg Tablet PO PRN (20:26)
[2021-03-21] MEDS: busPIRone HCl 5 MG TAB PO SCH (20:29)
[2021-03-21] MEDS: Potassium Citrate 10 MEQ TAB PO SCH (20:29)
[2021-03-21] MEDS: Famotidine 20 MG TAB PO SCH (20:29)
[2021-03-21] MEDS: Escitalopram Oxalate 20 mg Tablet PO SCH (20:29)
[2021-03-21] MEDS: Ondansetron ODT 4 MG TAB PO PRN (22:39)
[2021-03-22] MEDS: HYDROcodone/Acetaminophen 7.5/325 mg Tablet PO PRN ×5 (05:53→23:41)
[2021-03-22 06:40] LABS: #Basophils 0.1 thou/uL (0.0-0.2); #Eosinphils 0.2 thou/uL (0.0-0.7); #Lymphocytes 1.5 thou/uL (1.20-3.40); #Monocytes 0.6 thou/uL (0.11-0.59); %Basophils 2.8 % (0.0-1.0); %Eosinophils 3.6 % (0.0-10.0); %Lymphocytes 33.5 % (21.0-51.0); %Monocytes 14.4 % (0.0-10.0); %Neutrophils 45.7 % (42.0-75.0); Hemoglobin 11.2 g/dL (12.0-16.0); Mean Corpuscular HGB CONC 31.7 g/dL (32.0-36.0); Mean Corpuscular Hemoglobin 23.6 pg (27.0-31.0); Mean Corpuscular Volume 74.4 fL (78.0-98.0); Mean Platelet Volume 10.2 fL (7.4-10.4); Platelet Count 286 thou/uL (130-400); RBC Distribution Width 17.4 % (11.5-14.5); Red Blood Cell (RBC) Count 4.72 mill/uL (4.20-5.40); White Blood Cell (WBC) Count 4.3 thou/uL (4.8-10.8)
[2021-03-22 07:02] LABS: Anion Gap 15 mmol/L (10-20); BUN (Urea Nitrogen) 17 mg/dL (9.8-20.1); Calc. Creatinine Clearance 128 mL/min (70-130); Calcium 9.3 mg/dL (7.8-10.44); Carbon Dioxide 26 mmol/L (22-29); Chloride 103 mmol/L (98-107); Glucose 91 mg/dL (70-105); Potassium 4.1 mmol/L (3.5-5.1); Sodium 140 mmol/L (136-145)
[2021-03-22] MEDS: Mometasone 200 MCG/Formoterol 5 MCG 120 PUFF INHALER INH SCH ×2 (07:07→19:50)
[2021-03-22] MEDS: Acetaminophen/Codeine 30-300mg Tablet PO PRN ×2 (07:59→21:57)
[2021-03-22] MEDS: hydrOXYzine 25 MG TAB PO PRN ×3 (08:00→21:05)
[2021-03-22] MEDS: tiZANidine HCl 4 MG TAB PO PRN ×3 (08:00→19:28)
[2021-03-22] MEDS: busPIRone HCl 5 MG TAB PO SCH ×2 (08:01→20:57)
[2021-03-22] MEDS: Loratadine 10 MG TAB PO SCH ×2 (09:03→21:05)
[2021-03-22] MEDS: Methocarbamol 500 MG TAB PO SCH ×3 (09:29→20:58)
[2021-03-22] MEDS: Montelukast Sodium 10 mg Tablet PO SCH (20:56)
[2021-03-22] MEDS: Famotidine 20 MG TAB PO SCH (20:56)
[2021-03-22] MEDS: Escitalopram Oxalate 20 mg Tablet PO SCH (20:57)
[2021-03-22] MEDS: Potassium Citrate 10 MEQ TAB PO SCH (20:58)
[2021-03-22] MEDS: Ondansetron ODT 4 MG TAB PO PRN (21:58)
[2021-03-23] MEDS: HYDROcodone/Acetaminophen 7.5/325 mg Tablet PO PRN ×3 (05:52→19:47)
[2021-03-23] MEDS: Mometasone 200 MCG/Formoterol 5 MCG 120 PUFF INHALER INH SCH ×2 (07:22→18:10)
[2021-03-23] MEDS: busPIRone HCl 5 MG TAB PO SCH ×2 (08:49→20:39)
[2021-03-23] MEDS: Methocarbamol 500 MG TAB PO SCH ×3 (08:50→20:40)
[2021-03-23] MEDS ORDERED: FLU VACC QS2021-22(6MOS UP)/PF 60 MCG/0.5 ML SYRINGE IM ONE (09:00)
[2021-03-23] MEDS: Acetaminophen/Codeine 30-300mg Tablet PO PRN (09:17)
[2021-03-23] MEDS: DEXILANT 60 MG PO SCH (12:06)
[2021-03-23] MEDS: tiZANidine HCl 4 MG TAB PO PRN (13:43)
[2021-03-23] MEDS: Ondansetron ODT 4 MG TAB PO PRN (17:28)
[2021-03-23] MEDS: Escitalopram Oxalate 20 mg Tablet PO SCH (20:38)
[2021-03-23] MEDS: Montelukast Sodium 10 mg Tablet PO SCH (20:38)
[2021-03-23] MEDS: Famotidine 20 MG TAB PO SCH (20:39)
[2021-03-23] MEDS: Potassium Citrate 10 MEQ TAB PO SCH (20:40)
[2021-03-24] MEDS: HYDROcodone/Acetaminophen 7.5/325 mg Tablet PO PRN ×4 (03:33→20:47)
[2021-03-24] MEDS: Mometasone 200 MCG/Formoterol 5 MCG 120 PUFF INHALER INH SCH ×2 (08:03→19:00)
[2021-03-24] MEDS: busPIRone HCl 5 MG TAB PO SCH ×2 (08:37→20:44)
[2021-03-24] MEDS: DEXILANT 60 MG PO SCH (08:39)
[2021-03-24] MEDS: Methocarbamol 500 MG TAB PO SCH ×3 (08:40→20:45)
[2021-03-24] MEDS: Loratadine 10 MG TAB PO SCH ×2 (08:42→20:44)
[2021-03-24] MEDS: hydrOXYzine 25 MG TAB PO PRN ×2 (10:27→20:44)
[2021-03-24] MEDS: Montelukast Sodium 10 mg Tablet PO SCH (20:42)
[2021-03-24] MEDS: Potassium Citrate 10 MEQ TAB PO SCH (20:43)
[2021-03-24] MEDS: Famotidine 20 MG TAB PO SCH (20:43)
[2021-03-24] MEDS: Escitalopram Oxalate 20 mg Tablet PO SCH (20:45)
[2021-03-24] MEDS: tiZANidine HCl 4 MG TAB PO PRN (20:46)
[2021-03-25] MEDS: HYDROcodone/Acetaminophen 7.5/325 mg Tablet PO PRN ×4 (02:04→21:39)
[2021-03-25] MEDS: Ondansetron ODT 4 MG TAB PO PRN (02:08)
[2021-03-25] MEDS: Mometasone 200 MCG/Formoterol 5 MCG 120 PUFF INHALER INH SCH ×2 (06:58→18:57)
[2021-03-25] MEDS: hydrOXYzine 25 MG TAB PO PRN ×2 (10:58→15:16)
[2021-03-25] MEDS: Loratadine 10 MG TAB PO SCH ×2 (10:59→21:38)
[2021-03-25] MEDS: busPIRone HCl 5 MG TAB PO SCH ×2 (10:59→21:37)
[2021-03-25] MEDS: DEXILANT 60 MG PO SCH (11:01)
[2021-03-25] MEDS: Methocarbamol 500 MG TAB PO SCH ×3 (11:01→21:56)
[2021-03-25] MEDS ORDERED: Albuterol Sulfate 2.5 mg/3 ml Neb NEB PRN (13:10)
[2021-03-25] MEDS: Escitalopram Oxalate 20 mg Tablet PO SCH (21:37)
[2021-03-25] MEDS: Famotidine 20 MG TAB PO SCH (21:38)
[2021-03-25] MEDS: Montelukast Sodium 10 mg Tablet PO SCH (21:38)
[2021-03-25] MEDS: Potassium Citrate 10 MEQ TAB PO SCH (21:55)
[2021-03-26] MEDS: HYDROcodone/Acetaminophen 7.5/325 mg Tablet PO PRN ×4 (05:13→21:31)
[2021-03-26] MEDS: Mometasone 200 MCG/Formoterol 5 MCG 120 PUFF INHALER INH SCH ×2 (07:10→18:12)
[2021-03-26] MEDS: DEXILANT 60 MG PO SCH (08:31)
[2021-03-26] MEDS: Methocarbamol 500 MG TAB PO SCH ×3 (08:32→21:32)
[2021-03-26] MEDS: Loratadine 10 MG TAB PO SCH ×2 (08:32→21:31)
[2021-03-26] MEDS: busPIRone HCl 5 MG TAB PO SCH ×2 (08:33→21:30)
[2021-03-26] MEDS: hydrOXYzine 25 MG TAB PO PRN ×2 (10:36→19:41)
[2021-03-26] MEDS: LEVALBUTEROL NEB PRN (11:39)
[2021-03-26] MEDS: tiZANidine HCl 4 MG TAB PO PRN (13:50)
[2021-03-26] MEDS: Famotidine 20 MG TAB PO SCH (21:30)
[2021-03-26] MEDS: Escitalopram Oxalate 20 mg Tablet PO SCH (21:31)
[2021-03-26] MEDS: Montelukast Sodium 10 mg Tablet PO SCH (21:31)
[2021-03-26] MEDS: Potassium Citrate 10 MEQ TAB PO SCH (21:34)
[2021-03-26] MEDS: Ondansetron ODT 4 MG TAB PO PRN (23:08)
[2021-03-27] MEDS: Mometasone 200 MCG/Formoterol 5 MCG 120 PUFF INHALER INH SCH ×2 (06:52→18:24)
[2021-03-27] MEDS: busPIRone HCl 5 MG TAB PO SCH ×2 (07:58→21:44)
[2021-03-27] MEDS: Loratadine 10 MG TAB PO SCH ×2 (07:58→21:44)
[2021-03-27] MEDS: Methocarbamol 500 MG TAB PO SCH ×3 (07:58→21:43)
[2021-03-27] MEDS: DEXILANT 60 MG PO SCH (08:00)
[2021-03-27] MEDS: HYDROcodone/Acetaminophen 7.5/325 mg Tablet PO PRN ×3 (08:06→20:38)
[2021-03-27] MEDS: LEVALBUTEROL NEB PRN (10:27)
[2021-03-27] MEDS: hydrOXYzine 25 MG TAB PO PRN ×3 (10:28→22:40)
[2021-03-27] MEDS: Famotidine 20 MG TAB PO SCH (21:42)
[2021-03-27] MEDS: Potassium Citrate 10 MEQ TAB PO SCH (21:42)
[2021-03-27] MEDS: Escitalopram Oxalate 20 mg Tablet PO SCH (21:43)
[2021-03-27] MEDS: Montelukast Sodium 10 mg Tablet PO SCH (21:43)
[2021-03-27] MEDS: Ondansetron ODT 4 MG TAB PO PRN (23:12)
[2021-03-28] MEDS: HYDROcodone/Acetaminophen 7.5/325 mg Tablet PO PRN ×3 (04:49→17:20)
[2021-03-28] MEDS: Mometasone 200 MCG/Formoterol 5 MCG 120 PUFF INHALER INH SCH ×2 (07:30→19:00)
[2021-03-28] MEDS: hydrOXYzine 25 MG TAB PO PRN ×2 (09:24→19:13)
[2021-03-28] MEDS: Methocarbamol 500 MG TAB PO SCH ×3 (09:24→20:53)
[2021-03-28] MEDS: Loratadine 10 MG TAB PO SCH ×2 (09:24→20:53)
[2021-03-28] MEDS: busPIRone HCl 5 MG TAB PO SCH ×2 (09:24→20:52)
[2021-03-28] MEDS: DEXILANT 60 MG PO SCH (09:25)
[2021-03-28] MEDS: Famotidine 20 MG TAB PO SCH (20:53)
[2021-03-28] MEDS: Escitalopram Oxalate 20 mg Tablet PO SCH (20:53)
[2021-03-28] MEDS: Montelukast Sodium 10 mg Tablet PO SCH (20:54)
[2021-03-28] MEDS: Potassium Citrate 10 MEQ TAB PO SCH (21:00)
[2021-03-28] MEDS: diphenhydrAMINE 25 MG CAP PO PRN (21:35)
[2021-03-29] MEDS: Mometasone 200 MCG/Formoterol 5 MCG 120 PUFF INHALER INH SCH ×2 (07:35→19:46)
[2021-03-29] MEDS: Ondansetron ODT 4 MG TAB PO PRN (09:21)
[2021-03-29] MEDS: HYDROcodone/Acetaminophen 7.5/325 mg Tablet PO PRN ×3 (09:21→20:21)
[2021-03-29] MEDS: tiZANidine HCl 4 MG TAB PO PRN ×2 (09:21→14:34)
[2021-03-29] MEDS: busPIRone HCl 5 MG TAB PO SCH ×2 (09:23→20:15)
[2021-03-29] MEDS: Loratadine 10 MG TAB PO SCH ×2 (09:23→20:16)
[2021-03-29] MEDS: DEXILANT 60 MG PO SCH (09:24)
[2021-03-29] MEDS: Methocarbamol 500 MG TAB PO SCH ×3 (09:25→20:15)
[2021-03-29] MEDS: Acetaminophen/Codeine 30-300mg Tablet PO PRN (12:31)
[2021-03-29] MEDS: hydrOXYzine 25 MG TAB PO PRN ×2 (12:39→18:09)
[2021-03-29] MEDS: Escitalopram Oxalate 20 mg Tablet PO SCH (20:15)
[2021-03-29] MEDS: Famotidine 20 MG TAB PO SCH (20:15)
[2021-03-29] MEDS: Potassium Citrate 10 MEQ TAB PO SCH (20:15)
[2021-03-29 20:16] LABS: SARS-CoV-2 PCR by NAA Not Detected (NotDetected)
[2021-03-29] MEDS: Montelukast Sodium 10 mg Tablet PO SCH (20:16)
[2021-03-29] MEDS: diphenhydrAMINE 25 MG CAP PO PRN (20:48)
[2021-03-30 06:44] LABS: Anion Gap 12 mmol/L (10-20); BUN (Urea Nitrogen) 10 mg/dL (9.8-20.1); Calc. Creatinine Clearance 135 mL/min (70-130); Calcium 9.2 mg/dL (7.8-10.44); Carbon Dioxide 25 mmol/L (22-29); Chloride 103 mmol/L (98-107); Glucose 98 mg/dL (70-105); Hemoglobin 9.8 g/dL (12.0-16.0); Mean Corpuscular HGB CONC 32.1 g/dL (32.0-36.0); Mean Corpuscular Hemoglobin 23.6 pg (27.0-31.0); Mean Corpuscular Volume 73.5 fL (78.0-98.0); Mean Platelet Volume 9.6 fL (7.4-10.4); Platelet Count 268 thou/uL (130-400); Potassium 3.8 mmol/L (3.5-5.1); RBC Distribution Width 16.7 % (11.5-14.5); Red Blood Cell (RBC) Count 4.17 mill/uL (4.20-5.40); Sodium 136 mmol/L (136-145); White Blood Cell (WBC) Count 4.7 thou/uL (4.8-10.8)
[2021-03-30] MEDS: Mometasone 200 MCG/Formoterol 5 MCG 120 PUFF INHALER INH SCH ×2 (06:48→18:34)
[2021-03-30 06:57] LABS: Band 8 % (5-11); Eosinophils 4 % (0-10); Lymphocytes 24 % (21-51); MDiff Complete? YES; Monocytes 8 % (0-10); Neutrophil 56 % (42-75)
[2021-03-30] MEDS: DEXILANT 60 MG PO SCH (08:45)
[2021-03-30] MEDS: busPIRone HCl 5 MG TAB PO SCH ×2 (08:46→20:27)
[2021-03-30] MEDS: Loratadine 10 MG TAB PO SCH ×2 (08:46→20:28)
[2021-03-30] MEDS: hydrOXYzine 25 MG TAB PO PRN (08:47)
[2021-03-30] MEDS: Methocarbamol 500 MG TAB PO SCH ×3 (08:47→20:29)
[2021-03-30] MEDS: HYDROcodone/Acetaminophen 7.5/325 mg Tablet PO PRN ×3 (08:49→20:28)
[2021-03-30] MEDS: Ondansetron ODT 4 MG TAB PO PRN (08:59)
[2021-03-30] MEDS: diphenhydrAMINE 25 MG CAP PO PRN ×2 (15:36→21:04)
[2021-03-30] MEDS: Escitalopram Oxalate 20 mg Tablet PO SCH (20:27)
[2021-03-30] MEDS: Famotidine 20 MG TAB PO SCH (20:27)
[2021-03-30] MEDS: Montelukast Sodium 10 mg Tablet PO SCH (20:28)
[2021-03-30] MEDS: Potassium Citrate 10 MEQ TAB PO SCH (20:30)
[2021-03-31] MEDS: Mometasone 200 MCG/Formoterol 5 MCG 120 PUFF INHALER INH SCH ×2 (07:10→20:30)
[2021-03-31] MEDS: Ondansetron ODT 4 MG TAB PO PRN (08:08)
[2021-03-31] MEDS: Methocarbamol 500 MG TAB PO SCH ×3 (08:55→19:48)
[2021-03-31] MEDS: Loratadine 10 MG TAB PO SCH ×2 (08:55→19:47)
[2021-03-31] MEDS: busPIRone HCl 5 MG TAB PO SCH ×2 (08:56→19:46)
[2021-03-31] MEDS: DEXILANT 60 MG PO SCH (08:59)
[2021-03-31] MEDS: HYDROcodone/Acetaminophen 7.5/325 mg Tablet PO PRN ×3 (10:28→21:24)
[2021-03-31] MEDS: diphenhydrAMINE 25 MG CAP PO PRN (14:24)
[2021-03-31] MEDS: hydrOXYzine 25 MG TAB PO PRN (18:17)
[2021-03-31] MEDS: Escitalopram Oxalate 20 mg Tablet PO SCH (19:46)
[2021-03-31] MEDS: Famotidine 20 MG TAB PO SCH (19:47)
[2021-03-31] MEDS: Montelukast Sodium 10 mg Tablet PO SCH (19:50)
[2021-03-31] MEDS: Potassium Citrate 10 MEQ TAB PO SCH (20:12)
[2021-04-01] MEDS: HYDROcodone/Acetaminophen 7.5/325 mg Tablet PO PRN ×3 (07:37→21:10)
[2021-04-01] MEDS: Mometasone 200 MCG/Formoterol 5 MCG 120 PUFF INHALER INH SCH ×2 (07:42→18:36)
[2021-04-01] MEDS: Methocarbamol 500 MG TAB PO SCH ×3 (09:04→19:35)
[2021-04-01] MEDS: Loratadine 10 MG TAB PO SCH ×2 (09:04→19:34)
[2021-04-01] MEDS: busPIRone HCl 5 MG TAB PO SCH ×2 (09:04→19:34)
[2021-04-01] MEDS: DEXILANT 60 MG PO SCH (09:05)
[2021-04-01] MEDS: hydrOXYzine 25 MG TAB PO PRN ×2 (11:01→19:37)
[2021-04-01] MEDS: tiZANidine HCl 4 MG TAB PO PRN (12:33)
[2021-04-01] MEDS: Amlodipine 5 MG TAB PO SCH (19:33)
[2021-04-01] MEDS: Famotidine 20 MG TAB PO SCH (19:34)
[2021-04-01] MEDS: Escitalopram Oxalate 20 mg Tablet PO SCH (19:34)
[2021-04-01] MEDS: Potassium Citrate 10 MEQ TAB PO SCH (19:36)
[2021-04-01] MEDS: Montelukast Sodium 10 mg Tablet PO SCH (19:36)
[2021-04-01] MEDS: Ondansetron ODT 4 MG TAB PO PRN (22:09)
[2021-04-02] MEDS: diphenhydrAMINE 25 MG CAP PO PRN
[2021-04-02] MEDS: Mometasone 200 MCG/Formoterol 5 MCG 120 PUFF INHALER INH SCH ×2 (07:13→18:02)
[2021-04-02] MEDS: busPIRone HCl 5 MG TAB PO SCH ×2 (08:41→19:47)
[2021-04-02] MEDS: Loratadine 10 MG TAB PO SCH ×2 (08:41→19:48)
[2021-04-02] MEDS: DEXILANT 60 MG PO SCH (08:42)
[2021-04-02] MEDS: Methocarbamol 500 MG TAB PO SCH ×3 (08:42→19:49)
[2021-04-02] MEDS: HYDROcodone/Acetaminophen 7.5/325 mg Tablet PO PRN ×3 (08:47→19:58)
[2021-04-02] MEDS: hydrOXYzine 25 MG TAB PO PRN ×2 (10:18→19:57)
[2021-04-02] MEDS: Amlodipine 5 MG TAB PO SCH (19:47)
[2021-04-02] MEDS: Escitalopram Oxalate 20 mg Tablet PO SCH (19:47)
[2021-04-02] MEDS: Famotidine 20 MG TAB PO SCH (19:48)
[2021-04-02] MEDS: Montelukast Sodium 10 mg Tablet PO SCH (19:50)
[2021-04-02] MEDS: Potassium Citrate 10 MEQ TAB PO SCH (19:50)
[2021-04-03] MEDS: Mometasone 200 MCG/Formoterol 5 MCG 120 PUFF INHALER INH SCH (07:10)
[2021-04-03 07:35] VITALS: BP 136/82; TEMP 98.5
[2021-04-03] MEDS: Methocarbamol 500 MG TAB PO SCH (07:36)
[2021-04-03] MEDS: busPIRone HCl 5 MG TAB PO SCH (07:37)
[2021-04-03] MEDS: HYDROcodone/Acetaminophen 7.5/325 mg Tablet PO PRN (07:38)
[2021-04-03] MEDS: Loratadine 10 MG TAB PO SCH (07:38)
[2021-04-03] MEDS: DEXILANT 60 MG PO SCH (07:41)
[2021-04-03] MEDS: hydrOXYzine 25 MG TAB PO PRN (11:05)
== END 2021-04-03 11:51 ==
LOC: ERS 16:57 → T4-A 19:04
PROVIDERS: ADMIT Neurological Surgery; ATTEND Family Medicine
DX: T81.31XA Disruption of external operation (surgical) wound, not elsewhere classified, initial encounter (principal); T81.49XA Infection following a procedure, other surgical site, initial encounter; I10 Essential (primary) hypertension; J45.20 Mild intermittent asthma, uncomplicated; K50.10 Crohn's disease of large intestine without complications; F41.8 Other specified anxiety disorders; K21.9 Gastro-esophageal reflux disease without esophagitis; M45.9 Ankylosing spondylitis of unspecified sites in spine; N20.0 Calculus of kidney; E66.9 Obesity, unspecified; Z68.41 Body mass index [BMI] 40.0-44.9, adult; Z20.822 Contact with and (suspected) exposure to COVID-19; Z88.2 Allergy status to sulfonamides; Z88.5 Allergy status to narcotic agent; Z79.899 Other long term (current) drug therapy; Z98.1 Arthrodesis status; Y83.8 Other surgical procedures as the cause of abnormal reaction of the patient, or of later complication, without mention of misadventure at the time of the procedure
CPT/HCPCS: 36415; 80048; 80053; 83605; 85025; 87040; 94664; 96374; 96375; 96376; G0378; J1170; J2405; Q0162; U0003; U0005

== ENCOUNTER → 2021-07-27 | Day surgery (SDC) | payer OTHER | LOC: RAD 14:49 | PROVIDERS: ATTEND Urology | DX: N20.0 Calculus of kidney (principal); Z88.2 Allergy status to sulfonamides; Z88.5 Allergy status to narcotic agent; Z98.1 Arthrodesis status | CPT/HCPCS: 36415; 74018; 80048; 81001; 83970; 84550; 87086 ==

== ENCOUNTER 2022-08-24 13:24 | Outpatient (CLI) | payer OTHER | END 2022-08-24 13:25 | disposition home or self-care (01) | LOC: RAD 13:24 | PROVIDERS: ATTEND Internal Medicine Infectious Disease | DX: N20.0 Calculus of kidney (principal); N28.1 Cyst of kidney, acquired | CPT/HCPCS: 36415; 74018; 80048; 81001; 83970; 84550 ==